=== PATIENT | female | born 1965 | race Caucasian/White ===

== ENCOUNTER 2016-12-29 07:41 | Emergency (ER) | payer SELFPAY ==
[~2016-12-29] VITALS: Ht 149.9 cm; Wt 70.0 kg
[~2016-12-29 07:41] MED LIST: DUONSOL2 NEB; LORT5TAB PO
[2016-12-29 07:46] VITALS: BP 154/73; PULSE 65; RESP 22; TEMP 98.4; O2SAT 100
[2016-12-29] MEDS ORDERED: methylPREDNISolone SOD SUCC 125 MG/2 ML VIAL IV PUSH ONE (08:00)
--- NOTE | 2016-12-29 08:01 | PD ---
HPI Chief Complaint: Respiratory Symptoms Time Seen by Provider: 07:49 Travel History International Travel<30 days: No Contact w/Intl Traveler<30days: No Traveled to known affect area: No History of Present Illness HPI This is a 51-year-old female who presents to the emergency department with shortness of breath has been constant for 5 days, associated with some myalgias and subjective fevers, rhinorrhea and productive cough with some brown sputum. Patient has a history of asthma and felt like she had the flu over the weekend. She said some of her symptoms were improving but her breathing difficulty was very bad last night she couldn't sleep. She also reports that for the past several days she's had some numbness and tingling in her second and third finger on her right hand. She says it involves both the palmar surface and the back of the hand and she feels like the hand is heavy. She's not had any trouble moving the hand. She's also been having increasing pain in both of her feet and she is concerned she may have undiagnosed diabetes. PFSH Past Medical History Arthritis: Yes Asthma: Yes Cardiovascular Problems: Yes (IRREG. HR ) Diminished Hearing: No Respiratory: Yes (ASTHMA ) Immunizations Current: Yes Past Surgical History Cholecystectomy: Yes Hysterectomy: Yes Social History Alcohol Use: Yes (OCCASIONAL) Tobacco Use: No Substance Use: No Allergies-Medications (Allergen,Severity, Reaction): Coded Allergies: Codeine (Verified Allergy, Intermediate, 12/29/16) Demerol (Verified Allergy, Intermediate, 12/29/16) Erythromycins (Verified Allergy, Mild, 12/29/16) Percocet (Verified Allergy, Unknown, Anaphylaxis, 12/29/16) Morphine (Verified Adverse Reaction, Severe, Hypotension, 12/29/16) Reported Meds & Prescriptions Reported Meds & Active Scripts Active Reported Symbicort Inh (Budesonide/Formoterol Fumarate) 160-4.5 Mcg/Act Aero 2 Puff INH Q12HR Review of Systems Except as stated in HPI: all other systems reviewed are Neg Physical Exam Narrative GENERAL:Well appearing, no acute distress SKIN: Focused skin assessment warm and dry. HEAD: Atraumatic. Normocephalic. EYES: Pupils equal and round. No injection or drainage. ENT: Moist mucous membranes NECK: Trachea midline. CARDIOVASCULAR: Regular rate and rhythm. No murmur appreciated. 2+ bilateral radial pulses with normal capillary refill. RESPIRATORY: Mild expiratory wheezing with no increased work of breathing GASTROINTESTINAL: Abdomen soft, non-tender, nondistended. MUSCULOSKELETAL: No obvious deformities. NEUROLOGICAL: Awake and alert. No obvious cranial nerve deficits. No dysarthria or aphasia. No upper or lower extremity drift. No upper extremity ataxia. Decreased sensation to light touch in the palmar and dorsal surface of the right hand with no involvement of the forearm PSYCHIATRIC: Appropriate mood and affect; insight and judgment normal. Data Data Last Documented VS Vital Signs Date Time Temp Pulse Resp B/P Pulse Ox O2 Delivery O2 Flow Rate FiO2 12/29/16 07:53 20 100 Room Air 12/29/16 07:46 98.4 65 154/73 Orders Complete Blood Count With Diff (12/29/16 07:58) Comprehensive Metabolic Panel (12/29/16 07:58) ^ Insert Iv (12/29/16 07:58) Methylprednisolone So Succ Inj (Solumedr (12/29/16 08:00) Albuterol-Ipratropium Neb (Duoneb Neb) (12/29/16 08:00) Labs Laboratory Tests Test 12/29/16 08:10 White Blood Count 6.9 TH/MM3 Red Blood Count 4.56 MIL/MM3 Hemoglobin 13.5 GM/DL Hematocrit 38.6 % Mean Corpuscular Volume 84.6 FL Mean Corpuscular Hemoglobin 29.7 PG Mean Corpuscular Hemoglobin 35.0 % Concent Red Cell Distribution Width 13.1 % Platelet Count 253 TH/MM3 Mean Platelet Volume 7.8 FL Neutrophils (%) (Auto) 60.5 % Lymphocytes (%) (Auto) 27.7 % Monocytes (%) (Auto) 9.5 % Eosinophils (%) (Auto) 1.9 % Basophils (%) (Auto) 0.4 % Neutrophils # (Auto) 4.2 TH/MM3 Lymphocytes # (Auto) 1.9 TH/MM3 Monocytes # (Auto) 0.7 TH/MM3 Eosinophils # (Auto) 0.1 TH/MM3 Basophils # (Auto) 0.0 TH/MM3 CBC Comment DIFF FINAL Differential Comment Sodium Level 141 MEQ/L Potassium Level 3.7 MEQ/L Chloride Level 107 MEQ/L Carbon Dioxide Level 25.6 MEQ/L Anion Gap 8 MEQ/L Blood Urea Nitrogen 14 MG/DL Creatinine 0.71 MG/DL Estimat Glomerular Filtration 87 ML/MIN Rate Random Glucose 91 MG/DL Calcium Level 9.0 MG/DL Total Bilirubin 0.3 MG/DL Aspartate Amino Transf 40 U/L (AST/SGOT) Alanine Aminotransferase 74 U/L (ALT/SGPT) Alkaline Phosphatase 66 U/L Total Protein 7.5 GM/DL Albumin 3.9 GM/DL MDM Medical Decision Making Medical Screen Exam Complete: Yes Emergency Medical Condition: Yes Interpretation(s) Afebrile, no tachycardia, hypertensive Labs are reassuring Differential Diagnosis Bronchitis, acute asthma exacerbation, viral syndrome, cervical radiculopathy, peripheral neuropathy, stroke Narrative Course This is a 51-year-old female who presents to the emergency department with increasing shortness of breath and wheezing in the setting of viral upper respiratory symptoms. I suspect she has an acute asthma exacerbation. She also has incidentally reporting some numbness in her right hand. This appears to be consistent with a cervical radiculopathy. She has an otherwise complete normal neurologic exam. I don't think any further neuroimaging is warranted. I recommended conservative management and she could follow-up with her primary care physician if her symptoms don't improve for MRI. Patient will be discharged on prednisone. Diagnosis Primary Impression: Acute asthma exacerbation Qualified Code: J45.21 - Mild intermittent asthma with acute exacerbation Patient Instructions: General Instructions Additional Instructions: If you develop severe shortness of breath, chest pain, or difficulty breathing return to the emergency department. Use albuterol every 4 hours for the next 2 days. Then use as needed for wheezing. Complete your course of steroids. Follow up with your primary care physician in 2-3 days if your symptoms have not improved. Med/Other Pt SpecificInfo: Prescription(s) given Scripts Prednisone 20 Mg Tab40 Mg PO DAILY 4 Days Prov:Ruth Wallace MD 12/29/16 Disposition: 01 DISCHARGE HOME Condition: Stable Ruth Wallace MD Dec 29, 2016 08:01
[2016-12-29] MEDS ORDERED: SYMB160A INH (08:04)
[2016-12-29] MEDS: RESP: ALBUTEROL 2.5 MG/IPRATROPIUM 0.5 MG NEB (SCH) INH (08:08)
[2016-12-29 08:24] LABS: AUTOMATED NEUTROPHIL # 4.2 TH/MM3 (1.8-7.7); BASOPHIL % 0.4 % (0.0-2.0); EOSINOPHIL # 0.1 TH/MM3 (0-0.4); EOSINOPHIL % 1.9 % (0.0-4.0); HEMATOCRIT 38.6 % (35.0-46.0); HEMO FLAGS DIFF FINAL; LYMPH % 27.7 % (9.0-44.0); LYMPHOCYTE # 1.9 TH/MM3 (1.0-4.8); MEAN CELL VOLUME 84.6 FL (80.0-100.0); MEAN CORPUSCULAR HEMOGLOBIN 29.7 PG (27.0-34.0); MONO % 9.5 % (0.0-8.0); NEUT % 60.5 % (16.0-70.0); PLATELET COUNT 253 TH/MM3 (150-450); RED BLOOD COUNT 4.56 MIL/MM3 (4.00-5.30); RED CELL DISTRIBUTION WIDTH 13.1 % (11.6-17.2); WHITE BLOOD COUNT 6.9 TH/MM3 (4.0-11.0)
[2016-12-29 08:36] LABS: ALT (GPT) 74 U/L (10-53); ANION GAP 8 MEQ/L (5-15); AST (GOT) 40 U/L (15-37); BICARBONATE 25.6 MEQ/L (21.0-32.0); BLOOD UREA NITROGEN 14 MG/DL (7-18); CHLORIDE 107 MEQ/L (98-107); GLOMERULAR FILTRATION RATE 87 ML/MIN (>89); POTASSIUM 3.7 MEQ/L (3.5-5.1); SODIUM (NA) 141 MEQ/L (136-145)
[2016-12-29 08:39] LABS: ALKALINE PHOSPHATASE 66 U/L (45-117); TOTAL BILIRUBIN ADULT 0.3 MG/DL (0.2-1.0)
[2016-12-29] MEDS ORDERED: PRED20 PO (08:49)
[2016-12-29 08:56] VITALS: BP 120/60; PULSE 70; RESP 18; O2SAT 100
== END 2016-12-29 09:11 | disposition home or self-care (01) ==
LOC: NEPC 07:41
DX: J45.901 Unspecified asthma with (acute) exacerbation (principal); R20.0 Anesthesia of skin; M79.672 Pain in left foot; M79.671 Pain in right foot
CPT/HCPCS: 80053; 85025; 94640; 94664; 96374; 99283; J2930